=== PATIENT | male | born 1965 | race Caucasian/White ===

== ENCOUNTER 2017-10-25 10:36 | Emergency (ER) | payer SELFPAY ==
[~2017-10-25] VITALS: Ht 182.9 cm; Wt 84.1 kg
[~2017-10-25 10:36] MED LIST: ATEN25TA PO
[2017-10-25] MEDS ORDERED: PHENYLEPHRINE NASAL 1%, 15ML SPRAY ONE (11:12)
[2017-10-25] MEDS ORDERED: PHENYLEPHRINE NASAL 1%, 30ML DROPS NAS ONE (11:30)
[2017-10-25] MEDS ORDERED: SILVER NITRATE STICK TP ONE ×2 (12:12→12:30)
[2017-10-25 13:27] VITALS: BP 155/91
== END 2017-10-25 13:28 | disposition home or self-care (01) ==
LOC: ED 12:04
DX: R04.0 Epistaxis (principal); I10 Essential (primary) hypertension
CPT/HCPCS: 30901; 99284